=== PATIENT | female | born 1950 | race Caucasian/White ===

== ENCOUNTER → 2023-03-16 06:23 | Day surgery (SDC) | payer OTHER, SELFPAY | LOC: GI 06:23 | PROVIDERS: ATTENDING PHYSICIAN Internal Medicine | DX: Z12.11 Encounter for screening for malignant neoplasm of colon (principal); Z86.010 Personal history of colon polyps; K57.30 Diverticulosis of large intestine without perforation or abscess without bleeding | CPT/HCPCS: G0105 ==

== ENCOUNTER → 2023-05-25 13:58 | Outpatient (REF) | payer OTHER, SELFPAY | LOC: HWRAD 13:58 | PROVIDERS: ATTENDING PHYSICIAN Family Medicine | DX: S96.911A Strain of unspecified muscle and tendon at ankle and foot level, right foot, initial encounter (principal) | CPT/HCPCS: 73630 ==

== ENCOUNTER 2023-11-09 08:44 | Emergency (ER) | payer OTHER, SELFPAY ==
[2023-11-09 08:47] VITALS: BMI 29.9
[2023-11-09 08:48] VITALS: BP 141/78
[2023-11-09 09:00] VITALS: BP 137/63
[2023-11-09] MEDS: MORPHINE SULFATE 4 MG IV (09:04)
[2023-11-09] MEDS: ZOFRAN 4 MG IV (09:04)
[2023-11-09 09:24] LABS: % Basophils 0.3 % (0-2); % Eosinophils 2.1 % (0-6); % Immature Granulocytes 0.3 % (0-0.5); % Lymphocytes 21.8 % (20.5-51.1); % Monocytes 5.2 % (1.7-9.3); % Neutrophils 70.3 % (42.2-75.2); Absolute Eosinophils 0.2 10^3/uL (0-0.7); Absolute Lymphocytes 2.3 10^3/uL (1.2-3.4); Absolute Monocytes 0.6 10^3/uL (0.1-0.6); Absolute Neutrophils 7.5 10^3/uL (1.4-6.5); Hematocrit 46.3 % (37.0-47.0); Hemoglobin 15.3 g/dL (12.0-16.0); Mean Corpuscular Hgb 28.3 pg (27.0-31.0); Mean Corpuscular Volume 85.6 fL (81.0-99.0); Nucleated Red Blood Cells % 0 %; Platelet Count 261 10^3/uL (130-400); Red Blood Cell Count 5.41 10^6/uL (4.20-5.40); Red Cell Dist. Width 12.5 % (11.5-14.5); White Blood Cell Count 10.7 10^3/uL (4.8-10.8)
[2023-11-09] MEDS: TORADOL 15 MG IV (09:42)
[2023-11-09 09:55] LABS: ALT (SGPT) 23 U/L (0-35); AST (SGOT) 26 U/L (14-36); Albumin 4.7 g/dl (3.5-5.0); Alkaline Phosphatase 111 U/L (38-126); Blood Urea Nitrogen 22 mg/dl (7-17); Calcium 9.9 mg/dl (8.4-10.2); Carbon Dioxide 23 mmol/L (22-30); Chloride 103 mmol/L (98-107); Estimated Creatinine Clearance 51 ml/min; Glucose 168 mg/dl (70-99); Lipase 129 U/L (23-300); Potassium 4.4 mmol/L (3.5-5.1); Sodium 141 mmol/L (135-145); Total Bilirubin 0.9 mg/dl (0.2-1.3); Total Protein 7.2 g/dl (6.3-8.2); eGFR 59.49
--- NOTE | 2023-11-09 10:06 | ED.GENMED ---
History of Present Illness
General
Chief Complaint: Abdominal Pain
Source: patient and family (daughter at bedside)
Exam Limitations: none
Time Seen by Provider: 11/09/23 08:53
Nursing documentation reviewed up to this point in time: agreed with
History of Present Illness
History of Present Illness:
73 yo female with hx HLD states LLQ pain 11/23. LLQ pain started 10/31 with visible blood in urine. Went to PCP 11/01 and dipstick had no blood. Pain subsided until yesterday and PCP started her on Amoxicillin 500 mg of which she has had 2 doses. U/A
showed 'infection that usually . Pain got suddenly worse today, with n/v. Denies fever/chills.
Past History
Past History
ED Past Medical History: COPD and Hypercholesterolemia
ED Past Surgical History: Orthopedic (L5-S1 back surgery)
Social History
Tobacco: Former smoker
Alcohol: None
Drug: None
Personal:
Living: with family
Review of Systems
Review of Systems
Allergies reviewed?: Yes
All Other Systems: ROS reviewed and negative except as documented in HPI and ROS
Constitutional: Denies fever or chills
Cardiac: Denies chest pain
ABD/GI: Reports abdominal pain, nausea and vomiting; Denies diarrhea
: Reports bleeding (reports intermittent blood in urine); Denies dysuria, frequency, flank pain, difficulty voiding or urgency
Musculoskeletal: Reports no symptoms
Skin: Reports no symptoms
Neurological: Reports no symptoms
Phy Exam
Physical Exam
Physical Exam:
GENERAL: Moderate distress with LLQ pain. A&Ox3.
CONSTITUTIONAL: Afebrile.
EYES: clear, conjunctivae normal
ENMT: moist mucus membranes, Pharynx nl
RESPIRATORY: Regular respirations, nonlabored, lungs clear.
CARDIOVASCULAR: Regular rate and rhythm, no murmurs, no rubs.
GI: Soft, tender LLQ, normal BS
MUSCULOSKELETAL: Moves with ease. Well perfused.
SKIN: Warm, dry, pink
PSYCH: Anxious mood and affect. Well kept, interactive and appropriate
NEUROLOGIC: Awake, alert and oriented. No focal neurological deficits
Course
Orders/Labs/Results
Orders:
Orders
11/09/23 09:01
Morphine Sulfate 4 mg IV NOW STA
Ondansetron Injectable [Zofran] 4 mg IV NOW STA
11/09/23 09:12
CMP [Comprehensive Metabolic Panel] Urgent
Complete Blood Count/With Diff Urgent
Lipase Urgent
11/09/23 09:36
CT Abd/pel Without Iv Or Oral Urgent
Comment:
Reason For Exam: LLQ pain, hematuria
Ketorolac [Toradol] 15 mg IV NOW STA
11/09/23 10:06
HYDROmorphone [Dilaudid] 0.5 mg IV NOW STA
11/09/23 11:32
Urinalysis Reflex To Culture Urgent
Date Specimen was Collected: 11/09/23
Time Specimen was Collected: 11:31
Urine Microscopic Reflex Cult Urgent
Urine Culture Urgent
HELEN Source: U
Specimen Description:
Date Specimen was Collected: 11/09/23
Time Specimen was Collected: 11:31
Abnormal Lab Results
11/09/23 11/09/23
09:12 11:32
RBC 5.41 H 10^6/uL
(4.20-5.40)
Absolute Neuts (auto) 7.5 H 10^3/uL
(1.4-6.5)
BUN 22 H mg/dl
(7-17)
Glucose 168 H mg/dl
(70-99)
Urine Ketones 1+ A
(Negative)
Ur Occult Blood Reflex 4+ A
(Negative)
Leukocyte Esterase Rfl 2+ A
(Negative)
Urine RBC 16-20 A /HPF
(0-2)
11/09/23 09:12
11/09/23 09:12
Vital Signs
Initial and Last Documented VS:
Initial Vital Signs
Temp Pulse Resp BP Pulse Ox
97.7 F 76 20 141/78 96
11/09/23 08:48 11/09/23 08:48 11/09/23 08:48 11/09/23 08:48 11/09/23 08:48
Last Documented Vital Signs
Temp Pulse Resp BP Pulse Ox
97.7 F 63 14 100/60 94
11/09/23 08:48 11/09/23 09:48 11/09/23 09:48 11/09/23 11:27 11/09/23 11:30
MDM/Problems Addressed
Differential Diagnosis Includes:
kidney/ureteral stone, UTI, diverticulitis
MDM/Problems Addressed:
73 yo female with hx HLD states LLQ pain 11/23. LLQ pain started 10/31 with visible blood in urine. Went to PCP 11/01 and dipstick had no blood. Pain subsided until yesterday and PCP started her on Amoxicillin 500 mg of which she has had 2 doses. U/A
showed 'infection that usually . Pain got suddenly worse today, with n/v. Denies fever/chills.
Afebrile, moderate distress due to pain, pale, diaphoretic, nauseous.
CBC normal
CMP BUN 22 otherwise unremarkable. IVFs infusing for mild dehdration, suspicion of ureteral stone.
10:10 a.m.
Pain 'a tiny bit better' after medications
10:[address] abd/pelvis plain: Radiology report read: IMPRESSION:
Small nonobstructing left renal calculi.
Mild left hydroureteronephrosis with three calculi seen in the distal left ureter, largest most distal located just proximal to distal left ureterovesical junction measuring 0.5-0.6 cm. Mild left periureteral and perinephric stranding.
Sigmoid diverticulosis.
Possible small hiatal hernia.
Pt states pain now /10. OOB and ambulating well.
Rx for Hydrocodone #6 tabs sent to her pharmacy
F/U with PCP
*Critical Care Note
Total Time (30-74mins, 75-104mins- exclusive of procedures): Not Applicable
ED Attending Note
-
Portions of this chart may have been created with voice recognition software.� Occasional wrong word or��sound alike� substitutions may have occurred due to the inherent limitations of voice recognition software.
Discharge Plan
Departure
Patient Disposition: Home (Routine Discharge)
Date of Disposition: 11/09/23
Time of Disposition: 10:58
Patient with high blood pressure during this ER visit?: No
Condition: Good
Discharge Problem:
Calculus of distal left ureter
Instructions: Kidney Stones (DC)
Prescriptions:
New
hydrocodone-acetaminophen 5-325 mg tablet
1 tab PO Q6H PRN (Reason: Pain) Qty: 6 0RF
tamsulosin [Flomax] 0.4 mg capsule
0.4 mg PO DAILY Qty: 5 0RF
Referrals:
Eli Serrato, DO [Family Provider] - Call in 1-3 days for appt
Activity Restrictions/Additional Instructions:
As we discussed, drink plenty of fluids.
Ibuprofen 600 mg, every 6 hours as needed for mild to moderate pain and use the Scammon (hydrocodone) if needed for worse pain.
Return immediately for fever, repeated vomiting, worsening pain or feeling sicker in any way.
Interventions
Interventions:
*Risk Screen - Suicide Last Done: 11/09/23 08:48
*General Assessment Last Done: 11/09/23 08:48
*Neglect/Abuse Screening Last Done: 11/09/23 08:48
ED- Fall Risk Assessment Last Done: 11/09/23 11:10
*ED COVID-19 Vaccine History Last Done: 11/09/23 11:10
*Nursing Disposition Last Done: 11/09/23 11:10
BO-Bdwfeo-Yrsexlzlgh Assessment Last Done: 11/09/23 08:48
Discharge Date and Time
Discharge Date/Time: 11/09/23 11:10
Print Language: [id number]
[2023-11-09] MEDS: DILAUDID 0.5 MG IV (10:18)
[2023-11-09 11:27] VITALS: BP 100/60
[2023-11-09 11:57] LABS: Urine Albumin Trace (Neg - Trace); Urine Bilirubin Negative (Negative); Urine Character Slightly Cloudy (Clear); Urine Glucose Negative (Negative); Urine Ketone 1+ (Negative); Urine Leukocyte 2+ (Negative); Urine Nitrite Negative (Negative); Urine Occult Blood 4+ (Negative); Urine Specific Gravity 1.025 (<1.030); Urine Urobilinogen Negative (Neg - 1+)
[2023-11-09 12:01] LABS: Urine Color Yellow
[2023-11-09 12:18] LABS: Urine Red Blood Cell 16-20 /HPF (0-2)
== END 2023-11-09 11:10 | disposition home or self-care (01) ==
LOC: EMR 08:44
PROVIDERS: Registered Nurse; EMERGENCY PHYSICIAN Emergency Medicine; FAMILY PHYSICIAN Family Medicine
DX: N13.2 Hydronephrosis with renal and ureteral calculous obstruction (principal); K57.30 Diverticulosis of large intestine without perforation or abscess without bleeding; R11.0 Nausea; J44.9 Chronic obstructive pulmonary disease, unspecified; E78.00 Pure hypercholesterolemia, unspecified; E11.9 Type 2 diabetes mellitus without complications; Z87.891 Personal history of nicotine dependence; Z88.6 Allergy status to analgesic agent; Z88.5 Allergy status to narcotic agent
CPT/HCPCS: 99284; 96374; 96375 ×3; 74176; 80053; 81003; 81015; 83690; 85025; 87086

== ENCOUNTER → 2025-01-24 09:15 | Outpatient (REF) | payer OTHER, SELFPAY | LOC: HWWDC 09:15 | PROVIDERS: ATTENDING PHYSICIAN Family Medicine | DX: Z12.31 Encounter for screening mammogram for malignant neoplasm of breast (principal) | CPT/HCPCS: 77063; 77067 ==